=== PATIENT | female | born 1970 | race American Indian/Alaskan Native ===

== ENCOUNTER 2016-08-30 06:00 | Inpatient (IN) | payer MEDICAID ==
[2016-08-30 07:03] LABS: Basophils % (Auto) 0.5 % (0.0-1.8); Eosinophils % (Auto) 3.2 % (0.0-4.3); Hematocrit 31.6 % (30.3-42.9); Hemoglobin 10.3 gm/dl (10.1-14.3); Mean Corpuscular HGB Conc 33 % (30-34); Mean Corpuscular Hemoglobin 27 pg (28-32); Mean Corpuscular Volume 84 fl (79-97); Platelet Count 235 K/mm3 (140-440); Red Blood Count 3.77 M/mm3 (3.65-5.03); White Blood Count 5.6 K/mm3 (4.5-11.0)
[2016-08-30 07:16] LABS: Anion Gap 22 mmol/L; BUN/Creatinine Ratio 12.85; Blood Urea Nitrogen 9 mg/dL (7-17); Calcium 8.7 mg/dL (8.4-10.2); Carbon Dioxide 22 mmol/L (22-30); Chloride 95.7 mmol/L (98-107); Glucose 224 mg/dL (65-100); Potassium 3.8 mmol/L (3.6-5.0); Sodium 136 mmol/L (137-145)
[2016-08-30 08:30] LABS: Bilirubin,Urine NEG (Negative); Blood,Urine NEG (Negative); Ketones,Urine NEG (Negative); Leukocyte Esterase,Urine NEG (Negative); Nitrite,Urine NEG (Negative); Urobilinogen,Urine < 2.0 mg/dL (<2.0)
--- NOTE | 2016-08-30 08:36 | XRay Report ---
CHEST 2 VIEWS INDICATION: Shortness of breath. COMPARISON: None similar at this institution. FINDINGS: PA and lateral chest radiographs demonstrate normal cardiomediastinal silhouette. Clear lungs. Mild thoracic spine degenerative spurring and levoscoliosis. CONCLUSION: No acute disease in the chest. Thank you for the opportunity to participate in this patient's care.
[2016-08-30 09:17] LABS: Bacteria,Urine 1+ /HPF (Negative)
--- NOTE | 2016-08-30 12:36 | Emergency Department Report ---
HPI - General Chief Complaint: Dyspnea/Respdistress Time Seen by Provider: 08/30/16 12:18 - HPI HPI: Room 4 The patient is a 46-year-old female presenting with a chief complaint of palpitations and shortness of breath. The patient states last week she had an episode of substernal chest tightness that lasted hours but then resolved. The patient states for the past 3 days she has had intermittent palpitations which lasted several minutes. Last night the patient developed shortness of breath which proceeded the palpitations. The patient states she is becoming more short of breath with lying down. The patient states she's never had a stress test or cardiac catheterization Location: [see above] Duration: [see above] Quality: Squeezing, shortness of breath Severity: Moderate Modifying factors: [see above] Context: [see above] Mode of transportation: [not driving] ED Past Medical Hx - Past Medical History Previous Medical History?: Yes Hx Hypertension: Yes Hx Diabetes: Yes Hx Pulmonary Embolism: Yes Additional medical history: anemia - Surgical History Past Surgical History?: Yes Additional Surgical History: C-[id number] - Family History Family history: no significant - Social History Smoking Status: Former Smoker (none 8 years) Substance Use Type: None (denies illicit drug use) ED Review of Systems ROS: Stated complaint: HEART PALPITATIONS, SHORTNESS OF BREATH Other details as noted in HPI Comment: All other systems reviewed and negative Constitutional: denies: chills, fever Eyes: denies: eye pain, eye discharge, vision change ENT: denies: ear pain, throat pain Respiratory: orthopnea, shortness of breath Cardiovascular: chest pain, palpitations, orthopnea Endocrine: no symptoms reported Gastrointestinal: denies: abdominal pain, nausea, diarrhea Genitourinary: denies: urgency, dysuria, discharge Musculoskeletal: denies: back pain, joint swelling, arthralgia Skin: denies: rash, lesions Neurological: denies: headache, weakness, paresthesias Psychiatric: as per HPI Hematological/Lymphatic: denies: easy bleeding, easy bruising Physical Exam - Physical Exam Vital Signs: Vital Signs 08/30/16 08/30/16 06:09 06:17 Temperature 97.6 F 97.6 F Pulse Rate 77 77 Respiratory 18 18 Rate Blood Pressure 194/115 Blood Pressure 194/115 [Right] O2 Sat by Pulse 99 99 Oximetry Physical Exam: GENERAL: The patient is well-developed well-nourished female lying on stretcher not appearing to be in acute distress. [] HEENT: Normocephalic. Atraumatic. Extraocular motions are intact. Patient has moist mucous membranes. NECK: Supple. Trachea midline CHEST/LUNGS: Clear to auscultation. There is no respiratory distress noted. HEART/CARDIOVASCULAR: Regular. There is no tachycardia. There is no gallop rub or murmur. ABDOMEN: Abdomen is soft, nontender. Patient has normal bowel sounds. There is no abdominal distention. SKIN: There is no rash. There is no edema. There is no diaphoresis. NEURO: The patient is awake, alert, and oriented. The patient is cooperative. The patient has normal speech MUSCULOSKELETAL: There is no evidence of acute injury. ED Course Vital Signs 08/30/16 08/30/16 06:09 06:17 Temperature 97.6 F 97.6 F Pulse Rate 77 77 Respiratory 18 18 Rate Blood Pressure 194/115 Blood Pressure 194/115 [Right] O2 Sat by Pulse 99 99 Oximetry ED Medical Decision Making - Lab Data Result diagrams: 08/30/16 06:31 08/30/16 06:31 Laboratory Tests 08/30/16 08/30/16 08/30/16 06:31 06:31 06:31 WBC 5.6 RBC 3.77 Hgb 10.3 Hct 31.6 MCV 84 MCH 27 L MCHC 33 RDW 14.0 Plt Count 235 Lymph % (Auto) 43.1 H [place] % (Auto) 9.5 H Eos % (Auto) 3.2 Baso % (Auto) 0.5 Lymph # 2.4 [place] # 0.5 Eos # 0.2 Baso # 0.0 Seg Neutrophils % 43.7 Seg Neutrophils # 2.5 D-Dimer Sodium 136 L Potassium 3.8 Chloride 95.7 L Carbon Dioxide 22 Anion Gap 22 BUN 9 Creatinine 0.7 Estimated GFR > 60 BUN/Creatinine Ratio 12.85 Glucose 224 H Calcium 8.7 Troponin T < 0.010 NT-Pro-B Natriuret Pep HCG, Qual Negative Urine Color Urine Turbidity Urine pH Ur Specific [place] Urine Protein Urine Glucose (UA) Urine Ketones Urine Blood Urine Nitrite Urine Bilirubin Urine Urobilinogen Ur Leukocyte Esterase Urine WBC (Auto) Urine RBC (Auto) U Epithel Cells (Auto) Urine Bacteria (Auto) Urine Yeast (Budding) 08/30/16 08/30/16 08/30/16 06:31 07:24 12:46 WBC RBC Hgb Hct MCV MCH MCHC RDW Plt Count Lymph % (Auto) [place] % (Auto) Eos % (Auto) Baso % (Auto) Lymph # [place] # Eos # Baso # Seg Neutrophils % Seg Neutrophils # D-Dimer 244.49 H Sodium Potassium Chloride Carbon Dioxide Anion Gap BUN Creatinine Estimated GFR BUN/Creatinine Ratio Glucose Calcium Troponin T NT-Pro-B Natriuret Pep 11.58 HCG, Qual Urine Color Straw Urine Turbidity Clear Urine pH 7.0 Ur Specific [place] 1.011 Urine Protein 30 mg/dl Urine Glucose (UA) >=500 Urine Ketones Neg Urine Blood Neg Urine Nitrite Neg Urine Bilirubin Neg Urine Urobilinogen < 2.0 Ur Leukocyte Esterase Neg Urine WBC (Auto) 45.0 H Urine RBC (Auto) 2.0 U Epithel Cells (Auto) 25.0 H Urine Bacteria (Auto) 1+ Urine Yeast (Budding) Few - EKG Data -: EKG Interpreted by Me EKG shows normal: sinus rhythm Rate: normal - EKG Data When compared to previous EKG there are: previous EKG unavailable Interpretation: normal EKG, other (no ischemic changes seen) - Radiology Data Radiology results: image reviewed (chest x-ray) interpreted by me: Chest x-ray-no focal infiltrates, no pneumothorax - Differential Diagnosis CHF, ACS, pericarditis, PE, GERD Critical care attestation.: If time is entered above; I have spent that time in minutes in the direct care of this critically ill patient, excluding procedure time. ED Disposition Clinical Impression: Chest pain, Shortness of breath, Palpitations, Hypertensive urgency Disposition: -09 OP ADMIT IP TO THIS HOSP Is pt being admited?: Yes Does the pt Need Aspirin: Yes Condition: Fair Instructions: Chest Pain (ED) Referrals: PRIMARY CARE, [Primary Care Provider] - 3-5 Days Time of Disposition: 13:39 (hospitalist paged)
[2016-08-30] MEDS ORDERED: CATAPRES PO ONE (12:43)
[2016-08-30] MEDS ORDERED: NITRO-BID 2% TP ONE (12:43)
--- NOTE | 2016-08-30 13:31 | Admit Criteria Form ---
Admission Criteria Documentation: DEEP VENOUS THROMBOSIS OF LOWER EXTREMITIES Clinical Indications for Admission to Inpatient Care ( Place 'X' for any and all applicable criteria): Admission is indicated for ANY ONE of the following (1)(2)(3)(4): [ ]I. Documented extensive thrombosis (e.g., clot in vena cava or above iliofemoral bifurcation) [ ]II. Limb-threatening thrombosis (e.g., phlegmasia cerulea dolens) [ ]III. Active bleeding [ ]IV. Recent surgery (e.g., within 6 weeks) [ ]V. Active peptic ulcer disease [ ]. Thrombosis while on anticoagulation [ ]VII. [X]VIII. Appropriate monitoring and therapy cannot be provided in home or outpatient setting [ ]IX. Thrombolysis (e.g., catheter-directed) or pharmaco mechanical thrombectomy needed (3) [ ]X. Vena cava filter placement planned (3) [ ]XI. Severely diminished cardiopulmonary reserve (e.g., pulmonary hypertension) [ ]XII. Severe renal failure (e.g., GFR less than 30 mL/min/1.73m2 (0.5 mL/sec /1.73m2)) [ ]XIII. Known clotting abnormality or deficiency (antithrombin III, protein C , or protein S) [ ]XIV. History of heparin-induced thrombocytopenia [ ]XV . Personal or family history of bleeding tendency or familial bleeding disorder that requires inpatient admission rather than observation care (Also use Deep Venous Thrombosis of Lower Extremities: Observation Care as appropriate) because of ANY ONE of the following: [ ]a) Significant allergic, autoimmune (thrombocytopenia), or coagulopathic reaction occurs in response to anticoagulation [ ]b) Other significant finding or clinical condition judged not to be within the scope of observation care Extended stay beyond goal length of stay may be needed for(1)(19): [ ]a) Hemorrhage or recent surgery(3) [ ]b) Inadequate oral anticoagulation [ ]c) Recurrent thromboembolism(3) [ ]d) Heparin-induced thrombocytopenia(14) The original [facility] content created by [facility] has been revised. The portions of the content which have been revised are identified through the use of italic text or in bold, and [facility] has neither reviewed nor approved the modified material. All other unmodified content is copyright [facility]. Please see references footnoted in the original [facility] edition 2016 Admission Criteria Met: Yes
[2016-08-30] MEDS ORDERED: ASPIRIN PO ONE (13:39)
[2016-08-30] MEDS ORDERED: DULCOLAX PR PRN (15:56)
[2016-08-30] MEDS ORDERED: MILK OF MAGNESIA PO PRN (15:56)
[2016-08-30] MEDS ORDERED: D50W (25GM) IV PRN ×2 (15:56→16:17)
[2016-08-30] MEDS ORDERED: ZOFRAN IV PRN (15:56)
[2016-08-30] MEDS ORDERED: SODIUM CHLORIDE FLUSH SYRINGE 10 ML IV PRN (16:05)
[2016-08-30] MEDS ORDERED: ROCEPHIN/NS 1 GM/50 ML 1 GM/50 ML BAG IV ONE (17:40)
[2016-08-30] MEDS: ROCEPHIN/NS 1 GM/50 ML 1 GM/50 ML BAG IV SCH (17:49)
[2016-08-30] MEDS ORDERED: NOVOLOG SUB-Q ONE (17:57)
[2016-08-30] MEDS: NOVOLOG SUB-Q SCH ×2 (18:07→21:32)
[2016-08-30] MEDS: TYLENOL PO PRN (20:29)
[2016-08-30] MEDS: APRESOLINE IV PRN (20:29)
[2016-08-30] MEDS: FEOSOL PO SCH ×2 (20:30→22:11)
[2016-08-30] MEDS: TOPROL XL PO SCH ×2 (20:30→22:12)
--- NOTE | 2016-08-30 21:44 | History and Physical Report ---
History of Present Illness Date of examination: 08/30/16 Date of admission: 08/30/16 15:56 Chief complaint: Palpitations and chest pain History of present illness: 46-year-old woman with a past medical history of hypertension diabetes she had a PE in November of last year for which she was on xarelto, which she completed in June of this year. The source of the PE was from her right lower extremity DVT that time. [place] and she has myself should her doctor in [place] gets. She complained that she had some chest pain last week that lasted a few hours. That resolved but over the past few days she is having palpitations and shortness of breath and dyspnea on exertion prompting her to come to the hospital. She states now that the shortness of breath and felt to have resolved. She has a right lower extremity swelling which has been swollen now since last year. She states that she was seen in June she had a CT angiogram of her chest after which she was taken off her blood thinners, but she did not having Dopplers of her lower extremities. At this time she feels well and denies chest pain denies shortness of breath currently. Unfortunately when she came into the ER she had a blood pressure 227/115 prompting her to be admitted for hypertensive urgency, denies dysuria Past History Past Medical History: anemia, diabetes, hypertension, other Past Surgical History: (history of PE and DVT) Social history: smoking (has quit now, has a history of 8 pack years) Family history: hypertension Medications and Allergies Allergies Allergy/AdvReac Type Severity Reaction Status Date / Time No Known Allergies Allergy Unverified 08/30/16 06:08 Home Medications Medication Instructions Recorded Confirmed Last Taken Type Aspirin [Aspirin BABY CHEW TAB] 81 mg PO QDAY 08/30/16 08/30/16 08/29/16 History Ferrous Sulfate [Feosol] 325 mg PO BID 08/30/16 08/30/16 08/29/16 History Hydrochlorothiazide [HCTZ] 25 mg PO QDAY 08/30/16 08/30/16 08/29/16 History Metoprolol Xl [Metoprolol 50 mg PO BID 08/30/16 08/30/16 08/29/16 History SUCCINATE ER TAB] Valsartan [Diovan] 40 mg PO DAILY 08/30/16 08/30/1617 History metFORMIN [Glucophage] 500 mg PO BID 08/30/16 08/30/16 08/29/16 History Active Meds: Active Medications Acetaminophen (Tylenol) 650 mg PO Q4H PRN PRN Reason: Pain MILD(1-3)/Fever >100.5/KENNEY Last Admin: 08/30/16 20:29 Dose: 650 mg Aspirin (Halfprin Ec) 81 mg PO QDAY [facility] Bisacodyl (Dulcolax) 10 mg MO QDAY PRN PRN Reason: Constipation unrelieved by MOM Dextrose (D50w (25gm)) 50 gm IV PRN PRN PRN Reason: HYPOGLYCEMIA Enoxaparin Sodium (Lovenox) 40 mg SUB-Q QDAY [facility] Ferrous Sulfate (Feosol) 325 mg PO BID [facility] Last Admin: 08/30/16 20:30 Dose: 325 mg Hydralazine HCl (Apresoline) 10 mg IV Q4HR PRN PRN Reason: BP >160/100 Last Admin: 08/30/16 20:29 Dose: 10 mg Hydrochlorothiazide (Hctz) 25 mg PO QDAY [facility] Ceftriaxone Sodium (Rocephin/Ns 1 Gm/50 Ml) 1 gm in 50 mls @ 100 mls/hr IV Q24H [facility] PRN Reason: Protocol Last Admin: 08/30/16 17:49 Dose: 100 mls/hr Insulin Aspart (Novolog) 0 units SUB-Q ACHS [facility] PRN Reason: Protocol Last Admin: 08/30/16 21:32 Dose: 1 units Magnesium Hydroxide (Milk Of Magnesia) 30 ml PO Q4H PRN PRN Reason: Constipation Metoprolol Succinate (Toprol Xl) 50 mg PO BID [facility] Last Admin: 08/30/16 20:30 Dose: 50 mg Morphine Sulfate (Morphine) 2 mg IV Q4H PRN PRN Reason: Pain, Moderate (4-6) Ondansetron HCl (Zofran) 4 mg IV Q8H PRN PRN Reason: N/V unrelieved by Reglan Sodium Chloride (Sodium Chloride Flush Syringe 10 Ml) 10 ml IV PRN PRN PRN Reason: LINE FLUSH Valsartan (Diovan) 40 mg PO DAILY [facility] Review of Systems All systems: negative (as stated HPI, 14 system review is otherwise negative) Exam - Constitutional Vitals: Temp Pulse Resp BP Pulse Ox 98.4 F 70 20 179/94 99 08/30/16 19:59 08/30/16 19:59 08/30/16 19:59 08/30/16 19:59 08/30/16 19:59 General appearance: Present: no acute distress, well-nourished - EENT Eyes: Present: PERRL ENT: hearing intact, clear oral mucosa - Neck Neck: Present: supple, normal ROM - Respiratory Respiratory effort: normal Respiratory: bilateral: CTA - Cardiovascular Heart Sounds: Present: S1 & S2. Absent: rub, click - Extremities Extremities: pulses symmetrical Extremity abnormal: edema (right lower extremity, nontender nonpitting) Peripheral Pulses: within normal limits - Abdominal General gastrointestinal: Present: soft, non-tender, non-distended, normal bowel sounds Female genitourinary: Present: normal - Integumentary Integumentary: Present: clear, warm, dry - Musculoskeletal Musculoskeletal: gait normal, strength equal bilaterally - Psychiatric Psychiatric: appropriate mood/affect, intact judgment & insight - Neurologic Neurologic: CNII-XII intact, moves all extremities Results - Labs CBC & Chem 7: 08/30/16 06:31 08/30/16 06:31 Labs: Laboratory Last Values WBC 5.6 K/mm3 (4.5-11.0) 08/30/16 06:31 RBC 3.77 M/mm3 (3.65-5.03) 08/30/16 06:31 Hgb 10.3 gm/dl (10.1-14.3) 08/30/16 06:31 Hct 31.6 % (30.3-42.9) 08/30/16 06:31 MCV 84 fl (79-97) 08/30/16 06:31 MCH 27 pg (28-32) L 08/30/16 06:31 MCHC 33 % (30-34) 08/30/16 06:31 RDW 14.0 % (13.2-15.2) 08/30/16 06:31 Plt Count 235 K/mm3 (140-440) 08/30/16 06:31 Lymph % (Auto) 43.1 % (13.4-35.0) H 08/30/16 06:31 Page % (Auto) 9.5 % (0.0-7.3) H 08/30/16 06:31 Eos % (Auto) 3.2 % (0.0-4.3) 08/30/16 06:31 Baso % (Auto) 0.5 % (0.0-1.8) 08/30/16 06:31 Lymph # 2.4 K/mm3 (1.2-5.4) 08/30/16 06:31 Page # 0.5 K/mm3 (0.0-0.8) 08/30/16 06:31 Eos # 0.2 K/mm3 (0.0-0.4) 08/30/16 06:31 Baso # 0.0 K/mm3 (0.0-0.1) 08/30/16 06:31 Seg Neutrophils % 43.7 % (40.0-70.0) 08/30/16 06:31 Seg Neutrophils # 2.5 K/mm3 (1.8-7.7) 08/30/16 06:31 D-Dimer 244.49 ng/mlDDU (0-234) H 08/30/16 12:46 Sodium 136 mmol/L (137-145) L 08/30/16 06:31 Potassium 3.8 mmol/L (3.6-5.0) 08/30/16 06:31 Chloride 95.7 mmol/L (98-107) L 08/30/16 06:31 Carbon Dioxide 22 mmol/L (22-30) 08/30/16 06:31 Anion Gap 22 mmol/L 08/30/16 06:31 BUN 9 mg/dL (7-17) 08/30/16 06:31 Creatinine 0.7 mg/dL (0.7-1.2) 08/30/16 06:31 Estimated GFR > 60 ml/min 08/30/16 06:31 BUN/Creatinine Ratio 12.85 % 08/30/16 06:31 Glucose 224 mg/dL (65-100) H 08/30/16 06:31 POC Glucose 153 (70-105) H 08/30/16 21:15 Calcium 8.7 mg/dL (8.4-10.2) 08/30/16 06:31 Troponin T < 0.010 ng/mL (0.00-0.029) 08/30/16 06:31 NT-Pro-B Natriuret Pep 11.58 pg/mL (0-450) 08/30/16 06:31 HCG, Qual Negative (Negative) 08/30/16 06:31 Urine Color Straw (Yellow) 08/30/16 07:24 Urine Turbidity Clear (Clear) 08/30/16 07:24 Urine pH 7.0 (5.0-7.0) 08/30/16 07:24 Ur Specific [place] 1.011 (1.003-1.030) 08/30/16 07:24 Urine Protein 30 mg/dl mg/dL (Negative) 08/30/16 07:24 Urine Glucose (UA) >=500 mg/dL (Negative) 08/30/16 07:24 Urine Ketones Neg mg/dL (Negative) 08/30/16 07:24 Urine Blood Neg (Negative) 08/30/16 07:24 Urine Nitrite Neg (Negative) 08/30/16 07:24 Urine Bilirubin Neg (Negative) 08/30/16 07:24 Urine Urobilinogen < 2.0 mg/dL (<2.0) 08/30/16 07:24 Ur Leukocyte Esterase Neg (Negative) 08/30/16 07:24 Urine WBC (Auto) 45.0 /HPF (0.0-6.0) H 08/30/16 07:24 Urine RBC (Auto) 2.0 /HPF (0.0-6.0) 08/30/16 07:24 U Epithel Cells (Auto) 25.0 /HPF (0-13.0) H 08/30/16 07:24 Urine Bacteria (Auto) 1+ /HPF (Negative) 08/30/16 07:24 Urine Yeast (Budding) Few /HPF 08/30/16 07:24 - Imaging and Cardiology EKG: image reviewed (normal sinus rhythm at 83 beats per minutes) Chest x-ray: image reviewed (no acute path) Venous US: image reviewed (right lower extremity popliteal DVT, indeterminate age) Assessment and Plan Assessment and plan: 46-year-old woman with a past medical history of PE and DVT who was recently taken off xarelto in june, who presents with palpitations, shortness of breath found to have persistent right lower extremity DVT Right lower extremity DVT Patient will be started on eliquis, she was advised that she'll most likely need lifelong anticoagulation We'll obtain CT angiogram to rule out PE Chest pain Chest pain has now resolved, serial troponins to rule out ACS, EKG was unremarkable as well as chest x-ray, will obtain stress test in the morning Chest pain is likely due to accelerated hypertension, obtain echo Hypertensive urgency She has a reset and all her blood pressure medications, along with IV medications which should be given as needed Diabetes Sliding scale insulin coverage while in hospital UTI Antibiotic coverage with Rocephin, obtain urine cultures She will need referral to PCP, as she does not have one VTE prophylaxis?: Chemical Plan of care discussed with patient/family: Yes
[2016-08-30] MEDS ORDERED: NACL ONE (22:13)
[2016-08-30] MEDS ORDERED: ELIQUIS PO ONE (23:00)
--- NOTE | 2016-08-30 23:10 | Cat Scan Report ---
FINAL REPORT EXAM: CT ANGIO CHEST HISTORY: sob, hx of previous PE TECHNIQUE: Enhanced CT of the chest at 2.5 mm axial intervals following a pulmonary embolism protocol. Coronal and sagittal imaging were also obtained. Oblique coronal MIP projections were obtained. Contrast: 100 ml of Omnipaque 350 given IV. PRIORS: None. FINDINGS: There is no evidence for pulmonary embolism in the main pulmonary artery, right and left pulmonary arteries or their major distributions. However, CT does not exclude distal pulmonary emboli. Otherwise, the lung parenchyma are expanded and clear with no evidence for parenchymal nodules, infiltrates, congestion, or pleural effusion. Several borderline enlarged lymph nodes in each axilla are noted measuring 11-12 mm. There is no evidence for mediastinal or bilateral hilar adenopathy. Cardiovascular structures are within normal limits. No evidence for ventricular chamber enlargement is seen. Images through the lung bases include the upper abdomen which show no abnormalities of the visualized abdominal viscera. Bony structures demonstrate no focal abnormalities. IMPRESSION: 1. no evidence for pulmonary embolism. 2. Several borderline enlarged lymph nodes in each axilla measuring 11-12 mm. Significance is uncertain. These may be reactive.
[2016-08-31 04:09] LABS: Basophils % (Auto) 0.3 % (0.0-1.8); Eosinophils % (Auto) 2.7 % (0.0-4.3); Hematocrit 29.9 % (30.3-42.9); Mean Corpuscular HGB Conc 33 % (30-34); Mean Corpuscular Hemoglobin 28 pg (28-32); Mean Corpuscular Volume 84 fl (79-97); Platelet Count 205 K/mm3 (140-440); Red Blood Count 3.57 M/mm3 (3.65-5.03); White Blood Count 5.6 K/mm3 (4.5-11.0)
[2016-08-31 04:29] LABS: Anion Gap 19 mmol/L; BUN/Creatinine Ratio 11.66; Blood Urea Nitrogen 7 mg/dL (7-17); Calcium 8.6 mg/dL (8.4-10.2); Carbon Dioxide 22 mmol/L (22-30); Chloride 98.8 mmol/L (98-107); Cholesterol 136 mg/dL (50-199); Glucose 212 mg/dL (65-100); HDL Cholesterol 38 mg/dL (40-59); Potassium 3.6 mmol/L (3.6-5.0); Sodium 136 mmol/L (137-145); Triglycerides 586 mg/dL (2-149)
[2016-08-31 04:45] LABS: LDL Cholesterol,Direct TNR mg/dL (50-130)
[2016-08-31] MEDS: TYLENOL PO PRN (07:01)
--- NOTE | 2016-08-31 07:55 | Vascular Lab Report ---
LOWER EXTREMITY VENOUS DUPLEX: REASON FOR EXAM: Shortness of breath. COMMENTS ON THE RIGHT: Age indeterminate nonocclusive thrombus noted in the popliteal vein. The remaining veins visualized are freely compressible without evidence of internal echogenicity. Spontaneous and phasic flow is present proximally. COMMENTS ON THE LEFT: All veins visualized are freely compressible without evidence of internal echogenicity. Flow is spontaneous and phasic throughout. IMPRESSION: Deep venous thrombosis in the right lower extremity
[2016-08-31] MEDS ORDERED: LEXISCAN IV ONE ×2 (09:09→09:13)
--- NOTE | 2016-08-31 09:26 | Progress Note ---
Assessment and Plan Assessment and plan: 46-year-old woman with a past medical history of PE and DVT who was recently taken off xarelto in june, who presents with palpitations, shortness of breath found to have persistent right lower extremity DVT Right lower extremity DVT Patient will be started on eliquis, she was advised that she'll most likely need lifelong anticoagulation CT angiogram was negative for PE Chest pain Chest pain has now resolved, serial troponins to rule out ACS, EKG was unremarkable as well as chest x-ray, MPI is negative ischemia Chest pain is likely due to accelerated hypertension, echo wnl Hypertensive urgency Bp still elevated, optimize meds today Diabetes Sliding scale insulin coverage while in hospital UTI Antibiotic coverage with Rocephin x 3 days Axillary LAD She has borderline 11-12 mm lymphadenopathy in both axilla. She will benefit from age-appropriate malignancy screening which will include mammogram and Pap smear, she will be referred to a PCP as an outpatient which can have this done. Hyperlipidemia Triglycerides over 500 initiate statin She will need referral to PCP, as she does not have one History Interval history: Chest pain and palpitations are resolved now. She states that headache is improving Hospitalist Physical - Physical exam Narrative exam: General: Patient appears well in no distress HEENT: MMM, EOMI cardiac: S1-S2 heard lungs: clear to auscultation, abdomen: soft, nontender, nondistended bowel sounds positive extremities: Mild right lower extremity edema, nonpitting Skin: no rash or lesion Neuro: no focal deficit Psych: appropriate behavior and mood, cognition intact - Constitutional Vitals: Temp Pulse Resp BP Pulse Ox 98.6 F 72 20 159/90 98 08/31/16 04:53 08/30/16 22:00 08/31/16 04:53 08/31/16 04:53 08/31/16 04:53 General appearance: Present: no acute distress, well-nourished Results - Labs CBC & Chem 7: 08/31/16 03:47 08/31/16 03:47 Labs: Laboratory Last Values WBC 5.6 K/mm3 (4.5-11.0) 08/31/16 03:47 RBC 3.57 M/mm3 (3.65-5.03) L 08/31/16 03:47 Hgb 10.0 gm/dl (10.1-14.3) L 08/31/16 03:47 Hct 29.9 % (30.3-42.9) L 08/31/16 03:47 MCV 84 fl (79-97) 08/31/16 03:47 MCH 28 pg (28-32) 08/31/16 03:47 MCHC 33 % (30-34) 08/31/16 03:47 RDW 14.0 % (13.2-15.2) 08/31/16 03:47 Plt Count 205 K/mm3 (140-440) 08/31/16 03:47 Lymph % (Auto) 45.9 % (13.4-35.0) H 08/31/16 03:47 [place] % (Auto) 9.5 % (0.0-7.3) H 08/31/16 03:47 Eos % (Auto) 2.7 % (0.0-4.3) 08/31/16 03:47 Baso % (Auto) 0.3 % (0.0-1.8) 08/31/16 03:47 Lymph # 2.6 K/mm3 (1.2-5.4) 08/31/16 03:47 [place] # 0.5 K/mm3 (0.0-0.8) 08/31/16 03:47 Eos # 0.1 K/mm3 (0.0-0.4) 08/31/16 03:47 Baso # 0.0 K/mm3 (0.0-0.1) 08/31/16 03:47 Seg Neutrophils % 41.6 % (40.0-70.0) 08/31/16 03:47 Seg Neutrophils # 2.3 K/mm3 (1.8-7.7) 08/31/16 03:47 D-Dimer 244.49 ng/mlDDU (0-234) H 08/30/16 12:46 Sodium 136 mmol/L (137-145) L 08/31/16 03:47 Potassium 3.6 mmol/L (3.6-5.0) 08/31/16 03:47 Chloride 98.8 mmol/L (98-107) 08/31/16 03:47 Carbon Dioxide 22 mmol/L (22-30) 08/31/16 03:47 Anion Gap 19 mmol/L 08/31/16 03:47 BUN 7 mg/dL (7-17) 08/31/16 03:47 Creatinine 0.6 mg/dL (0.7-1.2) L 08/31/16 03:47 Estimated GFR > 60 ml/min 08/31/16 03:47 BUN/Creatinine Ratio 11.66 % 08/31/16 03:47 Glucose 212 mg/dL (65-100) H 08/31/16 03:47 POC Glucose 172 (70-105) H 08/31/16 07:13 Calcium 8.6 mg/dL (8.4-10.2) 08/31/16 03:47 Troponin T < 0.010 ng/mL (0.00-0.029) 08/30/16 22:17 NT-Pro-B Natriuret Pep 11.58 pg/mL (0-450) 08/30/16 06:31 Triglycerides 586 mg/dL (2-149) H 08/31/16 03:47 Cholesterol 136 mg/dL (50-199) 08/31/16 03:47 LDL Cholesterol Direct TNR 08/31/16 03:47 HDL Cholesterol 38 mg/dL (40-59) L 08/31/16 03:47 Cholesterol/HDL Ratio 3.57 % 08/31/16 03:47 HCG, Qual Negative (Negative) 08/30/16 06:31 Urine Color Straw (Yellow) 08/30/16 07:24 Urine Turbidity Clear (Clear) 08/30/16 07:24 Urine pH 7.0 (5.0-7.0) 08/30/16 07:24 Ur Specific [place] 1.011 (1.003-1.030) 08/30/16 07:24 Urine Protein 30 mg/dl mg/dL (Negative) 08/30/16 07:24 Urine Glucose (UA) >=500 mg/dL (Negative) 08/30/16 07:24 Urine Ketones Neg mg/dL (Negative) 08/30/16 07:24 Urine Blood Neg (Negative) 08/30/16 07:24 Urine Nitrite Neg (Negative) 08/30/16 07:24 Urine Bilirubin Neg (Negative) 08/30/16 07:24 Urine Urobilinogen < 2.0 mg/dL (<2.0) 08/30/16 07:24 Ur Leukocyte Esterase Neg (Negative) 08/30/16 07:24 Urine WBC (Auto) 45.0 /HPF (0.0-6.0) H 08/30/16 07:24 Urine RBC (Auto) 2.0 /HPF (0.0-6.0) 08/30/16 07:24 U Epithel Cells (Auto) 25.0 /HPF (0-13.0) H 08/30/16 07:24 Urine Bacteria (Auto) 1+ /HPF (Negative) 08/30/16 07:24 Urine Yeast (Budding) Few /HPF 08/30/16 07:24
[2016-08-31] MEDS ORDERED: LOVENOX SUB-Q SCH (10:00)
[2016-08-31] MEDS ORDERED: DIOVAN PO SCH (10:00)
[2016-08-31] MEDS ORDERED: ELIQUIS PO SCH (11:00)
[2016-08-31] MEDS: ELIQUIS PO SCH ×3 (12:15→22:39)
[2016-08-31] MEDS: FEOSOL PO SCH ×2 (12:21→22:40)
[2016-08-31] MEDS: HCTZ PO SCH (12:21)
[2016-08-31] MEDS: HALFPRIN EC PO SCH (12:21)
[2016-08-31] MEDS: NOVOLOG SUB-Q SCH ×4 (12:23→22:41)
[2016-08-31] MEDS: TOPROL XL PO SCH ×2 (12:36→22:39)
[2016-08-31] MEDS: MORPHINE IV PRN (12:44)
--- NOTE | 2016-08-31 12:56 | Discharge Summary ---
Providers - Providers Date of Admission: 08/30/16 15:56 Attending physician: ANTONIA VALDEZ MD 08/30/16 Consult to Cardiac Rehabilitation [CONS] Routine Reason For Exam: Phase I Primary care physician: [employer] Hospitalization Condition: Fair Hospital course: 46-year-old woman with a past medical history of PE and DVT who was recently taken off xarelto in june, who presents with chest pain, palpitations, shortness of breath . She was found to have very elevated blood pressure in the ER did not respond immediately IV present medications. Given her history of DVT and PE she went on to have the Lower Extremity Dopplers that showed a right lower extremity DVT of an undetermined age, she also does have a CT of her chest that was negative for PE. The following day she went on to have a nuclear stress test is negative for ischemia, ACS was ruled out by negative EKG and negative serial troponins. Her blood pressure medication optimized given hypertensive urgency and improved. Her oral medications for diabetes were held and she was given a sliding scale on hospital. She received 3 days of IV antibiotics for complicated UTI. She had a lipid panel that showed significant elevated triglyceride level. Therefore she was initiated on a statin. She was also referred to her PCP S he does not have one in the area has just relocated to [place]. She was counseled that she'll most likely need lifelong anticoagulation, and since she had persistence right lower extremity DVT on Xarelto, she was converted to eliquis before discharge. Diagnosis Right lower extremity DVT Chest pain due to Hypertensive urgency Hypertensive urgency Diabetes UTI Axillary LAD, of unkown significance Hyperlipidemia Disposition: DC-01 TO HOME OR SELFCARE Time spent for discharge: 33 minutes Core Measure Documentation - Palliative Care Palliative Care/ Comfort Measures: Not Applicable - Core Measures Any of the following diagnoses?: DVT/PE - VTE Discharge Requirements Deep Vein Thrombosis/Pulmonary Embolism Present on Admission: Yes Has pt received <5 days of overlap therapy or INR<2.0: No Anticoagulant overlap therapy prescribed at discharge: No Contraindication No Overlap Therapy order at DC: Not Indicated Exam - Constitutional Vitals: Temp Pulse Resp BP Pulse Ox 98.6 F 88 20 180/88 98 08/31/16 04:53 08/31/16 12:18 08/31/16 04:53 08/31/16 12:36 08/31/16 04:53 General appearance: Present: no acute distress, well-nourished - EENT Eyes: Present: PERRL ENT: hearing intact, clear oral mucosa - Neck Neck: Present: supple, normal ROM - Respiratory Respiratory effort: normal Respiratory: bilateral: CTA - Cardiovascular Heart Sounds: Present: S1 & S2. Absent: rub, click - Extremities Extremities: pulses symmetrical Extremity abnormal: edema (Slight edema or RLE) Peripheral Pulses: within normal limits - Abdominal General gastrointestinal: Present: soft, non-tender, non-distended, normal bowel sounds Female genitourinary: Present: normal - Integumentary Integumentary: Present: clear, warm, dry - Musculoskeletal Musculoskeletal: gait normal, strength equal bilaterally - Psychiatric Psychiatric: appropriate mood/affect, intact judgment & insight - Neurologic Neurologic: CNII-XII intact, moves all extremities Plan Follow up with: THOR THOMSON MD [Staff Physician] - 7 Days PRIMARY CARE, [Primary Care Provider] - 3-5 Days DEREJE CUEVAS MD [Staff Physician] - 7 Days Prescriptions: Apixaban [Eliquis] 5 mg PO Q12HR #60 tablet Aspirin EC [Aspirin Enteric Coated TAB] 81 mg PO QDAY #30 tablet Ferrous Sulfate [Feosol 325 MG tab] 325 mg PO BID #60 tablet Hydrochlorothiazide [HCTZ] 25 mg PO QDAY #30 tablet metFORMIN [Glucophage] 500 mg PO BID #60 tablet Metoprolol Xl [Metoprolol SUCCINATE ER TAB] 50 mg PO DAILY #30 tablet Valsartan [Diovan] 160 mg PO BID #60 tablet
--- NOTE | 2016-08-31 13:19 | Event Note ---
Date: 08/31/16 Stress MPI: 1. Negative for ischemia. 2. EF 62%. Yanet NAJERA NP / DR. WINTERS
[2016-08-31] MEDS: ROCEPHIN/NS 1 GM/50 ML 1 GM/50 ML BAG IV SCH (18:45)
[2016-08-31] MEDS: APRESOLINE IV PRN (22:34)
[2016-08-31] MEDS: DIOVAN PO SCH (22:39)
[2016-09-01] MEDS: MORPHINE IV PRN (00:23)
[2016-09-01] MEDS: NOVOLOG SUB-Q SCH ×2 (08:37→12:49)
[2016-09-01] MEDS: TOPROL XL PO SCH (09:16)
[2016-09-01] MEDS: ELIQUIS PO SCH (09:16)
[2016-09-01] MEDS: DIOVAN PO SCH (09:17)
[2016-09-01] MEDS: HALFPRIN EC PO SCH (09:17)
[2016-09-01] MEDS: HCTZ PO SCH (09:17)
[2016-09-01] MEDS: FEOSOL PO SCH (09:17)
[2016-09-01 12:54] VITALS: BP 138/83
[2016-09-07] MEDS ORDERED: ELIQUIS PO SCH (10:00)
== END 2016-09-01 14:27 | disposition home or self-care (01) | DRG 305 ==
LOC: ED 06:00 → 4A 15:56
PROVIDERS: ADMIT Internal Medicine; ATTEND Internal Medicine
DX: I16.0 Hypertensive urgency (principal); E11.9 Type 2 diabetes mellitus without complications; N39.0 Urinary tract infection, site not specified; E78.5 Hyperlipidemia, unspecified; I82.401 Acute embolism and thrombosis of unspecified deep veins of right lower extremity; I10 Essential (primary) hypertension; Z86.711 Personal history of pulmonary embolism; Z98.891 History of uterine scar from previous surgery; Z87.891 Personal history of nicotine dependence; Z82.49 Family history of ischemic heart disease and other diseases of the circulatory system
CPT/HCPCS: 36415; 71020; 71275; 78452; 80048; 80061; 81001; 82962; 83880; 84484; 84703; 85025; 85379; 93005; 93010; 93017; 93306; 93970; A9502; J0360; J0696; J1815; J2270; J2405; J2785; Q9967